=== PATIENT | female | born 1950 | race Two or more races ===

== ENCOUNTER 2019-01-12 06:25 | Emergency (ER) | payer MEDICARE ==
[~2019-01-12] VITALS: Ht 154.9 cm; Wt 72.1 kg
[2019-01-12] MEDS ORDERED: LEVO50TA8 PO (06:42)
[2019-01-12] MEDS ORDERED: ERGO2000 PO (06:42)
[2019-01-12] MEDS ORDERED: LOSA100T31 PO (06:42)
[2019-01-12] MEDS ORDERED: TRIA1CAP6 PO (06:42)
[2019-01-12] MEDS ORDERED: ATOR20TA PO (06:42)
--- NOTE | 2019-01-12 06:51 | NUR ---
Dr. Williamson at bedside for MSE.
--- NOTE | 2019-01-12 07:06 | NUR ---
Report given to Kimber holly.
--- NOTE | 2019-01-12 07:07 | NUR ---
report received from Randy CLIFTON
[2019-01-12 07:08] LABS: BASOPHILS % (AUTO) 0.5 % (0.0-2.0); EOSINOPHILS # (AUTO) 0.1 K/uL (0.0-0.7); EOSINOPHILS % (AUTO) 2.1 % (0.0-7.0); HEMATOCRIT 39.6 % (31.2-41.9); HEMOGLOBIN 13.8 g/dL (10.9-14.3); LYMPHOCYTES # (AUTO) 0.9 K/uL (20.0-40.0); LYMPHOCYTES % (AUTO) 17.3 % (20.5-51.5); MEAN CORPUSCULAR HEMOGLOBIN 32.5 uug (24.7-32.8); MEAN CORPUSCULAR HGB CONC 35 g/dL (32.3-35.6); MEAN CORPUSCULAR VOLUME 93.2 fL (75.5-95.3); MONOCYTES # (AUTO) 0.4 K/uL (2.0-10.0); MONOCYTES % (AUTO) 7.4 % (0.0-11.0); NEUTROPHILS # (AUTO) 3.7 K/uL (1.8-8.9); NEUTROPHILS % (AUTO) 72.7 % (38.5-71.5); PLATELET COUNT (AUTO) 194 K/uL (179-408); RED BLOOD CELL COUNT(AUTO) 4.25 MIL/uL (3.63-4.92); WHITE BLOOD COUNT (AUTO) 5.1 K/uL (3.8-11.8)
[2019-01-12 07:31] LABS: BILIRUBIN,DIRECT 0.2 mg/dL (0.0-0.2); BILIRUBIN,TOTAL 0.8 mg/dL (0.2-1.0); CREATININE 2.7 mg/dL (0.6-1.3); POTASSIUM 4.6 mmol/L (3.5-5.1); TOTAL PROTEIN, SERUM 7.6 g/dL (6.4-8.2)
--- NOTE | 2019-01-12 07:45 | NUR ---
Report received, Patient assessed, and vitals recorded.
[2019-01-12 08:40] VITALS: BP 154/86
== END 2019-01-12 08:40 | disposition home or self-care (01) ==
LOC: ER 06:28
DX: R42 Dizziness and giddiness (principal); I48.91 Unspecified atrial fibrillation; Z79.899 Other long term (current) drug therapy
CPT/HCPCS: 36415; 70030-TC; 71045; 85025; 93005; A4663